=== PATIENT | male | born 1955 | race African-American/Black ===

== ENCOUNTER 2020-01-08 08:25 | Outpatient (CLI) | payer BC, SELFPAY ==
--- NOTE | ~2020-01-08 | CT_ITS ---
EXAMINATION: CT abdomen pelvis w con INDICATION: Prostate cancer TECHNIQUE: Computed tomographic images of the abdomen and pelvis were obtained after the administrati on of 100 cc of Omnipaque 350 intravenous contrast. The dose-length product (DLP) was 408.07 mGy-cm. Automated exposure control and iterative reconstruction technique were employed. COMPARISON: None available FINDINGS: Minimal dependent atelectasis is present in the lung bases. The heart size is normal. The l iver, spleen, pancreas, gallbladder, and adrenal glands are normal. Hypoattenuating lesions in the ki dneys, measuring up to 12 mm on the left, are too small to characterize but likely represent cysts. N o pathologically enlarged abdominal or pelvic lymph nodes are identified. There is no free intraperit mack gas or evidence of bowel obstruction. The appendix is normal. A moderate volume of colonic stoo l is present. There is mild lumbar spondylosis. IMPRESSION: 1. No evidence of metastatic disease. Reviewed, dictated and finalized at location A.
[2020-01-08 09:05] LABS: Estimated Glomerular Filt Rate > 60
== END 2020-01-08 08:26 | disposition home or self-care (01) ==
PROVIDERS: PCP Family Medicine; Visit Provider Urology
DX: C61 Malignant neoplasm of prostate (principal)
CPT/HCPCS: 36415; 74177; Q9967

== ENCOUNTER 2020-02-28 12:09 | Outpatient (CLI) | payer BC, SELFPAY ==
--- NOTE | 2020-02-28 13:11 | ECG_ITS ---
Measurements Intervals [place] Rate: 74 P: 61 TX: 151 QRS: -4 QRSD: 77 T: 0 QT: 382 QTc: 424 Interpretive Statements SINUS RHYTHM EARLY PRECORDIAL R/S TRANSITION NONSPECIFIC T-WAVE ABNORMALITY- INFERIOR LEADS BASELINE ARTIFACT- I, II, III, AVR, AVL, AVF BORDERLINE ECG Electronically Signed On 02-28-2020 13:44:25 CDT by Artie Wise D.O.
[2020-02-28 13:51] LABS: Eosinophils Absolute Auto 0.1 K/mm3 (0-0.3); Eosinophils Percent Auto 1.5 % (0-4.4); Hematocrit 44.6 % (42.0-52.0); Hemoglobin 14.4 g/dL (14.0-18.0); Immature Granulocyte Absolute 0.01 K/mm3 (0.00-0.031); Immature Granulocyte Percent A 0.2 % (0-0.5); Lymphocytes Absolute Auto 1.06 K/mm3 (0.9-3.2); Lymphocytes Percent Auto 26.2 % (18.3-44.2); Mean Corpuscular HGB Conc 32.3 g/dl (32-36); Mean Corpuscular Hemoglobin 27.3 pg (26-34); Mean Corpuscular Volume 84.6 fl (80-100); Mean Platelet Volume 11.5 fl (7.4-10.4); Monocytes Absolute Auto 0.3 K/mm3 (0.1-0.6); Monocytes Percent Auto 7.4 % (2.6-8.5); Neutrophils Absolute Auto 2.6 K/mm3 (1.3-6.7); Neutrophils Percent Auto 63.7 % (45.5-73.1); Platelet Count Result 213 k/mm3 (150-375); Red Blood Count 5.27 M/mm3 (4.6-6.20); Red Cell Distribution Width 13.5 % (11.5-14.5)
[2020-02-28 14:02] LABS: Prothrombin Time 12.6 Seconds (11.1-14.7)
[2020-02-28 14:03] LABS: Alanine Aminotransferase 15 U/L (4-50); Albumin Level 4.4 g/dL (3.5-5.1); Alkaline Phosphatase 87 U/L (38-126); Anion Gap 7 mmol/L (8-16); Aspartate Amino Transferase 27 U/L (17-59); Bilirubin,Total 0.5 mg/dL (0.2-1.3); Blood Urea Nitrogen 10 mg/dL (9-20); Calcium 9.2 mg/dL (8.4-10.2); Carbon Dioxide 28 mmol/L (22-30); Chloride 102 mmol/L (98-107); Estimated Glomerular Filt Rate > 60; Glucose 86 mg/dL (75-110); Partial Thromboplastin Time 27.5 SECONDS (22.3-36.8); Potassium 3.8 mmol/L (3.4-5.0); Sodium 137 mmol/L (137-145)
== END 2020-02-28 12:10 | disposition home or self-care (01) ==
PROVIDERS: PCP Family Medicine; Visit Provider Urology
DX: Z01.818 Encounter for other preprocedural examination (principal); C61 Malignant neoplasm of prostate
CPT/HCPCS: 36415; 80053; 85025; 85610; 85730; 86850; 86900; 86901; 87086; 93005

== ENCOUNTER 2020-03-07 00:06 | Outpatient (CLI) | payer BC, SELFPAY ==
[2020-03-07 19:30] LABS: SARS-CoV-2 RNA PCR Negative
== END 2020-03-07 00:07 | disposition home or self-care (01) ==
LOC: ANHCOVIDDT 00:06
PROVIDERS: PCP Family Medicine; Visit Provider Urology
DX: Z01.812 Encounter for preprocedural laboratory examination (principal); Z20.828 Contact with and (suspected) exposure to other viral communicable diseases
CPT/HCPCS: 87635; C9803; U0003

== ENCOUNTER 2020-03-10 00:07 | Day surgery (SDC) | payer BC, SELFPAY ==
[2020-02-28 12:21] VITALS: BP 176/97; PULSE 87; RESP 18; TEMP 37.2; O2SAT 98; BMI 29.2
--- NOTE | 2020-03-09 11:52 | P.PNAN_ITS ---
Anes - Initial Pre Proc Eval Procedure: Operation Date: 03/10/20 07:30 Proposed Procedures p Robotic Assisted Nerve Sparing Prostatectomy with Bilateral Pelvic Lymph Node Dissection - Corey Caldwell MD Date/Time: 03/09/20 11:52 Surgeon: Corey Caldwell MD Pre Op Diagnosis: prostate CA Patient Data Age: 64 Gender: M Height: 5 ft 4 in Weight: 77.3 kg Last Vital Signs Temp 98.9 F 02/28/20 12:21 Pulse 87 02/28/20 12:21 Resp 18 02/28/20 12:21 BP 176/97 H 02/28/20 12:21 Pulse Ox 98 02/28/20 12:21 Allergies Allergy/AdvReac Type Severity Reaction Status Date / Time No Known Allergies Allergy Verified 03/10/20 06:15 Home Medications Medication Instructions Recorded Confirmed Type ascorbic acid (vitamin C) [Vitamin 500 mg PO DAILY 02/28/20 03/10/20 History C] garlic 400 mg PO ONCE 02/28/20 03/10/20 History multivitamin [Multiple Vitamins] 1 tablet PO DAILY 02/28/20 03/10/20 History Patient hx anesthesia problems: none Family hx anesthesia problems: none [facility] Past Medical History Medical History (Updated 03/09/20 @ 11:52 by Raul Pitts MD) Prostate cancer Social History Social History Smoking status: Never smoker Alcohol intake: never Substance use: never Living arrangements: with family Spiritual care concerns: No Anes - Eval Final PreProcedure Day of Procedure 03/09/20 11:52 Patient weight: normal Heart: regular rate and rhythm Lungs: clear to auscultation Airway: Mallampati scale class II Neurological: alert and oriented Last oral intake: >/= 8 hours ASA classification: II Emergent: no Anesthetic plan: proceed Anesthesia type and monitoring: general ETT and standard monitoring Informed Consent: The patient's anesthetic plan and its attendant risks and benefits were discussed with the patient/family/POA. Questions were solicited and answers provided to the satisfaction of the patient/family/POA.
[2020-03-10] VITALS (12 sets, daily range): BP systolic 118–149; BP diastolic 68–112; PULSE 71–100; RESP 14–20; TEMP 36.1–37.1; O2SAT 98–100
[2020-03-10] MEDS: LACTATED RINGERS 1,000 ML 30 ML IV CONT ×2 (06:45→11:59)
--- NOTE | 2020-03-10 07:14 | PM.IMHP ---
H&P: HPI History of Present Illness Date/Time: 03/10/20 07:14 Chief complaint: prostate CA Narrative: Hitesh Justin is a 64 year old male with adenocarcinoma of prostate. Presents for robotic assist nerve sparing prostatectomy with possible plnd. Review of Systems Review of Systems: All systems reviewed & are unremarkable except as noted in HPI and below PMFSH Past Medical History Medical History Prostate cancer Social History Social History Smoking status: Never smoker Alcohol intake: never Substance use: never Living arrangements: with family Spiritual care concerns: No Meds Home Medications and Allergies Home Medications Medication Instructions Recorded Confirmed Type ascorbic acid (vitamin C) [Vitamin 500 mg PO DAILY 02/28/20 03/10/20 History C] garlic 400 mg PO ONCE 02/28/20 03/10/20 History multivitamin [Multiple Vitamins] 1 tablet PO DAILY 02/28/20 03/10/20 History Allergies Allergy/AdvReac Type Severity Reaction Status Date / Time No Known Allergies Allergy Verified 03/10/20 06:15 Vital Signs Vital Signs - 24 hr 03/10/20 07:04 Temperature 36.6 C Pulse Rate 78 Respiratory Rate 16 Blood Pressure 147/83 H Pulse Oximetry 99 Exam Const: General: comfortable HENMT: General nose exam: Normal nares present Eyes: General: appearance normal, both eyes and all related structures Resp: Effort & Inspection: normal respiratory effort Cardio: Rhythm: regular rhythm GI: GI Palp: Yes Soft to palpation Skin: General skin exam: normal color Neuro: Speech: normal speech Assessment and Plan Assessment and plan (1) Adenocarcinoma of prostate: Code(s): C61 - Malignant neoplasm of prostate Status: Acute Assessment and Plan: Robotic assist nerve sparing prosatectomy with possible bilateral PLND
--- NOTE | 2020-03-10 07:17 | WPDHPUPDATE1 ---
History and Physical Update Update Date/Time: 03/10/20 07:17 History and Physical has been reviewed, including an updated exam of the patient. There are NO changes in the patient's condition. Risks, benefits, and alternatives have been discussed and questions answered. Patient agrees to proceed with procedure.
[2020-03-10] MEDS: ceFAZolin 2 GM/D5W 50 ML 2 GM/50 ML BAG IVPB (07:22)
--- NOTE | 2020-03-10 11:44 | PM.PROC ---
Procedure Note - Detailed Date of procedure: 03/10/20 Pre-op diagnosis: prostate CA Post-op diagnosis: same Procedure performed: Robotic assisted nerve-sparing prostatectomy with bilateral pelvic lymphadenectomy Description of procedure: patient is taken the operative suite and correctly identified. Once anesthesia was obtained he was placed in the dorsal lithotomy position and prepped and draped usual sterile fashion. A supraumbilical incision was then made and carried down to the rectus fascia. Veress needle was inserted in the abdomen was insufflated to 15 mm Hg pressure. Camera port was placed in direct vision. It was noted that he had quite a bit of adhesions of his bowel to the perineum. We were able to place our working ports in the appropriate locations. We then took down the adhesions using some cold sharp scissors. Patient was then placed in steep Trendelenburg position and the robot was docked. Posterior approach was done. Seminal vesicles were dissected out in their entirety vessels were transected. The plane between the prostate and rectum was developed. Bladder was taken down the standard fashion. Space of Retzius was developed. Pure prosthetics were transected. Dorsal venous complex was ligated using 0 Vicryl in secured to the pubic bone. Bladder neck was then opened. Posterior bladder neck was also dissected out there was fairly good bladder neck sparing procedure performed. Posterior peritoneum was incised in the 7 a vesicles were exposed. Bilateral nerve-sparing was performed the standard fashion. Pedicles were clipped. Prostate was lifted off the rectum. Dorsal venous complex was then transected. Urethra was also transected. Specimen was placed in an Endo-Catch bag. Bilateral pelvic lymph node dissections were then performed with the boundaries being Allan's ligament distally external iliac superiorly obturator nerve posteriorly and the bifurcation of the vessels. Clips were placed proximally and distally. The right lymph node packet had a clip placed on it. These were also placed in the Endo-Catch bag. Surgicel was then placed in the obturator fossa. A Kip states was performed to approximate the posterior shelf. We then approximated the urethral stump to the bladder neck with good approximation mucosa to mucosa. This was performed using AV lock suture. Ramírez catheter was inserted inflated with 10 cc of sterile water. 180 cc was placed in the bladder there was no evidence of extravasation. All lap count needle count sponge counts were correct. A Buck-Navarro drain was then placed in the 3rd working port site. This was secured. Robot was undocked. Midline incision was extended slightly and the Endo-Catch bag was brought out. Rectus fascia was closed using 0 Vicryl in a running fashion. Subcuticular stitches were placed. We anesthetized the port sites using lidocaine. Patient was taken recovery room in stable condition. Anesthesia: GETA Surgeon: Corey Caldwell MD Estimated blood loss (mL): 150 Drains: Yes Packing: No Pathology: yes Complications: No immediate complications Condition: stable Disposition: PACU
[2020-03-10] MEDS: MEPERIDINE HCL INJ 50 MG/ML AMPUL 12.5 MG IV PUSH (12:44)
--- NOTE | 2020-03-10 12:52 | SUR.PHASEI ---
1250 sbar faxed floor notified
--- NOTE | 2020-03-10 13:22 | PC.NURSE ---
This patient, Hitesh Justin, was admitted to 3 [facility] Surg Room 309-01. Patient/family oriented to hospital policies and general routines including ID bracelet, bed and alarms, visiting hours, pain management, procedures, bathroom and other care routines, personal items, smoking policy, room service/diet, and visiting hours. Valuables list has been completed. Information on how to activate the Rapid Response Team has been discussed. Patient/Family are encouraged to report perceived risks to care and to ask questions if they do not understand what they are told or what they should do.
[2020-03-10] MEDS: LACTATED RINGERS 1,000 ML 125 ML IV CONT ×2 (14:38→22:31)
[2020-03-10] MEDS: KETOROLAC 30 MG/ML VIAL (*BKC) IV PUSH (14:38)
[2020-03-11 02:59] VITALS: BP 130/78; PULSE 83; RESP 18; TEMP 36.6; O2SAT 99
[2020-03-11 06:14] LABS: Hematocrit 40.2 % (42.0-52.0); Hemoglobin 13.1 g/dL (14.0-18.0)
[2020-03-11 06:30] LABS: Potassium 3.5 mmol/L (3.4-5.0)
[2020-03-11 06:32] VITALS: BP 133/73; PULSE 91; RESP 18; TEMP 36.4; O2SAT 98
[2020-03-11 06:32] LABS: Anion Gap 5 mmol/L (8-16); Blood Urea Nitrogen 9 mg/dL (9-20); Calcium 8.4 mg/dL (8.4-10.2); Carbon Dioxide 27 mmol/L (22-30); Chloride 104 mmol/L (98-107); Estimated CRCL calculation 52 ml/min; Estimated Glomerular Filt Rate > 60; Glucose 107 mg/dL (75-110); Sodium 136 mmol/L (137-145)
[2020-03-11] MEDS: LACTATED RINGERS 1,000 ML 125 ML IV CONT (06:34)
--- NOTE | 2020-03-11 07:41 | WPDUROPN2 ---
Progress Note: A&P Assessment and Plan (1) Adenocarcinoma of prostate: Code(s): C61 - Malignant neoplasm of prostate Status: Acute Assessment and Plan: Postop day 1. Robotic assisted nerve-sparing prostatectomy with bilateral pelvic lymphadenectomy. Doing well at this time. He increase activity with ambulation. Will monitor ISELA output this morning. Most likely will discharge home later today with Ramírez. Will make a decision regarding ISELA. Patient to be scheduled for catheter cystogram in a week's time. Subjective Subjective Date/Time Seen: 03/11/20 07:41 Post Op day: 1 (Robotic assisted nerve-sparing prostatectomy with bilateral pelvic lymphadenectomy) Interval history: Hitesh is doing well postoperative day 1. No major complaints. He has been up in a chair last night. Vital signs are stable and he is afebrile. Review of Systems Review of Systems: All systems reviewed & are unremarkable except as noted in HPI and below Exam Const: General: comfortable Resp: Effort & Inspection: normal respiratory effort Cardio: Rate: regular rate Rhythm: regular rhythm GI: Inspection: non-distended : Male General Exam: Yes normal external exam Urinary Catheter: Urinary Catheter: patent and draining and urine clear Neuro: Speech: normal speech Extrem: General: normal to inspection Objective Data Vital Signs Vital Signs: Vital Signs - 24 hr 03/10/20 12:05 03/10/20 12:19 03/10/20 12:35 Temperature 36.1 C L Pulse Rate 71 75 89 Respiratory Rate 15 14 20 Blood Pressure 118/70 140/112 H 149/78 H Pulse Oximetry 100 100 100 03/10/20 12:50 03/10/20 13:05 03/10/20 13:14 Temperature Pulse Rate 86 92 93 Respiratory Rate 18 20 18 Blood Pressure 149/86 H 144/85 H 136/80 Pulse Oximetry 100 100 98 03/10/20 13:29 03/10/20 13:59 03/10/20 14:59 Temperature 36.7 C Pulse Rate 94 90 87 Respiratory Rate 18 18 18 Blood Pressure 137/74 130/70 127/68 Pulse Oximetry 98 99 100 03/10/20 19:45 03/10/20 22:59 03/11/20 02:59 Temperature 37.1 C 36.6 C Pulse Rate 100 83 Respiratory Rate 20 18 Blood Pressure 130/74 130/78 Pulse Oximetry 100 98 99 03/11/20 06:32 Temperature 36.4 C Pulse Rate 91 Respiratory Rate 18 Blood Pressure 133/73 Pulse Oximetry 98 Intake/Output Intake/Output: Intake & Output 03/08/20 03/09/20 03/10/20 03/11/20 23:59 23:59 23:59 23:59 Intake Total 1600 1400 Output Total 1240 1930 Balance 360 -530 Meds/Results Medications: Active Medications Generic Name Dose Route Start Last Admin Trade Name Freq PRN Reason Stop Dose Admin Hydrocodone Bitart/Acetaminophen 1 tab 03/10/20 13:14 03/10/20 23:53 [place] 5-325 Mg PO 1 tab Q6H PRN Administration Pain Rated 1-3 Hydrocodone Bitart/Acetaminophen 2 tab 03/11/20 13:14 03/11/20 06:27 [place] 5-325 Mg PO 2 tab Q6H PRN Administration Pain Rated 4-6 Hyoscyamine 0.125 mg 03/10/20 13:14 Levsin Tablet SUBLINGUAL Q4H PRN Bladder Spasm Lactated Ringer's 1,000 mls @ 125 mls/hr 03/10/20 13:14 03/11/20 06:34 Lr - Lactated Ringers Iv IV CONT 125 mls/hr .Q8H CHRISTIAN Administration Ketorolac Tromethamine 30 mg 03/10/20 13:14 03/10/20 14:38 Toradol Inj IV PUSH 03/11/20 13:15 30 mg Q6H PRN Administration Pain Rated 4-6 Levofloxacin 500 mg 03/11/20 09:00 Levaquin Tab PO DAILY CHRISTIAN Morphine Sulfate 1 mg 03/10/20 13:14 Morphine Sulfate Inj IV PUSH Q2H PRN Breakthrough Pain Morphine Sulfate 2 mg 03/10/20 13:14 Morphine Sulfate Inj IV PUSH Q2H PRN Pain Rated 7-10 Naloxone HCl 0.1 mg 03/10/20 13:14 Narcan IV PUSH Q2M PRN Opiate Reversal Ondansetron HCl 4 mg 03/10/20 13:14 Zofran Inj IV PUSH Q6H PRN Nausea And Vomiting Labs Labs: Laboratory Results - last 24 hr 03/11/20 03/11/20 05:44 05:45 Hgb 13.1 L Hct 40.2 L Sodium 136 L Potassium 3.5 Chloride
--- NOTE | 2020-03-11 11:43 | WPDANESPN ---
Anes - Prog Note Post-Op Date/Time: 03/11/20 11:43 Cardiovascular status: normal Respiratory status: normal Airway patency: baseline Mental status: baseline Post-Op hydration status: normal Vital Signs: Last Vital Signs Temp 36.4 C 03/11/20 06:32 Pulse 91 03/11/20 06:32 Resp 18 03/11/20 06:32 BP 133/73 03/11/20 06:32 Pulse Ox 98 03/11/20 06:32 I/O: Intake & Output 03/10/20 03/11/20 03/11/20 23:59 07:59 15:59 Intake Total 1350 1400 Output Total 1100 1930 Balance 250 -530 Laboratory Tests 03/11/20 05:45 03/11/20 05:44 03/11/20 03/11/20 05:44 05:45 Hgb 13.1 L Hct 40.2 L Sodium 136 L Potassium 3.5 Chloride 104 Carbon Dioxide 27 Anion Gap 5 L BUN 9 Creatinine 1.10 Estim Creat Clear Calc 52 Estimated GFR > 60 Glucose 107 Calcium 8.4 Post-procedural complaints: none Patient Feedback: Patient satisfied with anesthetic care.
[2020-03-11 14:59] VITALS: BP 140/72; PULSE 80; RESP 16; TEMP 36.6; O2SAT 98
== END 2020-03-11 17:16 | disposition home or self-care (01) ==
LOC: ANHSURGERY 05:55 → ANH3MEDSUR 15:36
PROVIDERS: PCP Family Medicine; Visit Provider Urology
PROC: 0VT04ZZ Resection of Prostate, Percutaneous Endoscopic Approach (ICD-10-PCS; CPT 55867; principal; 2020-03-10 07:30)
DX: C61 Malignant neoplasm of prostate (principal)
CPT/HCPCS: 55866; 38571; 36415; 80048; 85014; 85018; 88307; 88309; A9270; J0690; J1100; J1885; J2175; J2250; J2405; J2704; J2710; J7030; J7120

== ENCOUNTER 2020-03-18 08:24 | Outpatient (CLI) | payer BC, SELFPAY ==
--- NOTE | ~2020-03-18 | XR_ITS ---
EXAMINATION: XR cystogram DATE: 03/18/2020 09:10 INDICATION: Malignant neoplasm of the prostate TECHNIQUE: Water-soluble contrast was gravity-infused through the patient's Ramírez catheter. Multiple fluoroscopic images were obtained. Fluoroscopy exposure time was 0.8 minutes. The DAP for this proced ure was 9.695 Gycm2. 10 total images are obtained. COMPARISON: None. FINDINGS: The bladder demonstrates a normal contour. No extravasation of contrast from the bladder is observed. There is soft tissue gas of the scrotum and left proximal thigh, likely postsurgical. The bowel gas pattern is normal. There is mild osteoarthritis of the hips. Phleboliths are noted in the p bro[place]. IMPRESSION: 1. No evidence of contrast extravasation from the bladder. Reviewed, dictated and finalized at location A.
== END 2020-03-18 08:25 | disposition home or self-care (01) ==
PROVIDERS: PCP Family Medicine; Visit Provider Urology
DX: C61 Malignant neoplasm of prostate (principal)
CPT/HCPCS: 51600; 74430; Q9967

== ENCOUNTER 2025-02-11 12:19 | Outpatient (CLI) | payer BC, SELFPAY ==
--- NOTE | ~2025-02-11 | PE_ITS ---
EXAMINATION: PET_PETPSMAST_PT DATE: 02/11/2025 15:58 INDICATION: Prostate cancer TECHNIQUE: 1.09 mCi of Illucix Ga-[id number]) was administered i.v. Low dose computed tomog radha (CT) images were acquired from the base of the brain to the base of the brain to the proximal t highs for attenuation correction and anatomic localization. Positron emission tomography (PET) images were acquired in the same distribution beginning 82 minutes after injection. Images including fused PET/CT images were reconstructed in axial, coronal, and sagittal planes. Automated exposure control t echnique was employed. The dose-length product was 824.65mGy-cm. COMPARISON: None FINDINGS: Head/neck: Typical pattern of symmetric physiologic increased activity in the lacrimal, parotid and submandibula r glands as well as along the mucosa of the nasal and oral cavities, pharynx and hypopharynx. No path ologically enlarged cervical lymphadenopathy or suspicious foci of increased uptake in the visualized head or neck. Chest: Dependent atelectasis in the lungs. No suspicious pulmonary nodules, pneumonia, pulmonary edema or pl eural effusion. Heart size is normal. No pericardial effusion. Thoracic aorta is normal in caliber. N o pathologically enlarged or PSMA avid thoracic lymphadenopathy. Abdomen/pelvis/proximal thighs: Physiologic renal accumulation and excretion of activity in the kidneys, bladder and along portions o f ureters. Status post prostatectomy with no abnormal uptake at the prostatectomy bed aside from the urinary activity in the bladder. Photopenic defect associated with approximately 1.5 cm cyst in the u pper pole of the left kidney. Normal degree and slightly heterogenous pattern of increased uptake thr oughout the liver and spleen without radiologic correlate or dominant PSMA avid lesion. The gallbladd er, pancreas and bilateral adrenal glands are normal. Moderate uptake scattered throughout the bowels with typical duodenal and proximal jejunal predominance and without radiologic correlate, also likel y physiologic. Normal appendix. No other abnormal foci of increased uptake or pathologically enlarged lymphadenopathy in the abdomen, pelvis or proximal thighs. Musculoskeletal: Moderate cervical, thoracic and lumbar spondylosis with bridging osteophytes at multiple levels consi stent with diffuse idiopathic skeletal hyperostosis (DISH). Bilateral rotator cuff calcific tendiniti s. No suspicious lytic, blastic or abnormally PSMA avid bone lesions. IMPRESSION: 1. Status post prostatectomy with no evident lesions concerning for residual/recurrent or metastatic disease. Reviewed, dictated and finalized at location A. IMPRESSION: 1. Status post prostatectomy with no evident lesions concerning for residual/re current or metastatic disease.
== END 2025-02-11 12:20 | disposition home or self-care (01) ==
PROVIDERS: PCP Family Medicine; Visit Provider Urology
DX: C61 Malignant neoplasm of prostate (principal); Z90.79 Acquired absence of other genital organ(s)
CPT/HCPCS: 78815; A9596